=== PATIENT | female | born 1955 | race Caucasian/White ===

== ENCOUNTER 2020-10-14 16:38 | Outpatient (CLI) | payer MEDICAID | END 2020-10-14 23:59 | disposition home or self-care (01) | LOC: RT 16:38 | PROVIDERS: ATTEND Family Medicine | DX: J45.20 Mild intermittent asthma, uncomplicated (principal) | CPT/HCPCS: 94010 ==

== ENCOUNTER 2023-03-18 16:41 | Emergency (ER) | payer MEDICAID ==
[~2023-03-18] VITALS: Ht 154.9 cm; Wt 41.6 kg
[2023-03-18 17:57] LABS: BASOPHILS # (AUTO) 0.1 X10'3 (0-0.2); BASOPHILS % (AUTO) 1.1 % (0-1); EOSINOPHILS % (AUTO) 0.1 % (0-6); HEMATOCRIT 41.8 % (35.0-45.0); HEMOGLOBIN 13.5 g/dl (12.0-16.0); LYMPHOCYTES # (AUTO) 1.5 X10'3 (1.1-4.8); LYMPHOCYTES % (AUTO) 18.3 % (21-51); MEAN CORPUSCULAR HGB CONC 32.2 g/dL (33.0-36.5); MEAN CORPUSCULAR VOLUME 89.8 FL (78-98); MEAN PLATELET VOLUME 8.6 FL (7.4-10.4); MONOCYTES # (AUTO) 0.8 X10'3 (0-0.9); MONOCYTES % (AUTO) 9.8 % (2-12); NEUTROPHILS # (AUTO) 5.8 X10'3 (1.8-7.7); NEUTROPHILS % (AUTO) 70.7 % (42-75); PLATELET COUNT 267 X10'3 (140-440); RED BLOOD COUNT 4.65 X10'6 (4.20-5.60); RED CELL DISTRIBUTION WIDTH 15.7 % (11.5-14.5); WHITE BLOOD COUNT 8.2 X10'3 (4.5-11.0)
[2023-03-18 18:12] LABS: ALANINE AMINOTRANSFERASE 16 U/L (12-78); ALBUMIN 3.2 G/DL (3.4-5.0); ALBUMIN/GLOBULIN RATIO 0.6 (1.1-1.5); ALKALINE PHOSPHATASE 102 IU/L (46-116); ANION GAP 7 (8-16); ASPARTATE AMINO TRANSFERASE 34 U/L (10-37); BILIRUBIN,TOTAL 0.5 MG/DL (0.1-1.0); BLOOD UREA NITROGEN 10 MG/DL (7-18); BUN/CREATININE RATIO 14.7 (10.0-20.0); CALCIUM 9.3 MG/DL (8.5-10.1); CHLORIDE 96 MMOL/L (99-107); CREATININE 0.68 MG/DL (0.40-0.90); GLUCOSE 107 MG/DL (70-104); POTASSIUM 3.7 MMOL/L (3.5-5.1); SODIUM 129 MMOL/L (135-145); TOTAL CARBON DIOXIDE 25.7 MMOL/L (24-32); TOTAL PROTEIN 8.2 G/DL (6.4-8.2); eCRCL 53 ML/MIN; eGFR 87 ML/MIN
[2023-03-18 18:19] LABS: LIPASE 23 U/L (16-77); MAGNESIUM 1.6 MG/DL (1.5-2.4); PRO BRAIN NATRIURETIC PEPTIDE 354 PG/ML (0-125)
[2023-03-18] MEDS ORDERED: amox tr/potassium clavulanate 875/125mg TAB PO ONE (20:20)
[2023-03-18] MEDS ORDERED: predniSONE 20 mg tablet PO ONE (20:20)
[2023-03-18] MEDS ORDERED: albuterol 2.5 MG/3 ML nebule NEB ONE (20:20)
[2023-03-18] MEDS ORDERED: PRED20TA PO (20:37)
[2023-03-18] MEDS ORDERED: AMOX-117 PO (20:37)
[2023-03-18] MEDS ORDERED: ALBU8HFA INH (20:37)
[2023-03-18 20:40] VITALS: PULSE 85; RESP 20; O2SAT 91
[2023-03-18 20:51] VITALS: PULSE 86; RESP 18; O2SAT 100
[2023-03-19 05:25] VITALS: TEMP 97.8
[2023-03-19 07:09] VITALS: BP 111/60; PULSE 65; RESP 16; O2SAT 100
== END 2023-03-19 15:20 | disposition home or self-care (01) ==
LOC: ER 16:41
DX: J44.1 Chronic obstructive pulmonary disease with (acute) exacerbation (principal); R05.9 Cough, unspecified
CPT/HCPCS: 36415; 71045; 80053; 83690; 83735; 83880; 84484; 85025; 93005; 94640; 99285; J7512; 94760

== ENCOUNTER 2024-03-07 09:47 | Emergency (ER) | payer MEDICAID ==
[~2024-03-07] VITALS: Ht 154.9 cm; Wt 40.9 kg
[2024-03-07 10:25] LABS: BILIRUBIN,URINE NEGATIVE (Neg); CLARITY,URINE CLOUDY (Clear); COLOR,URINE YELLOW (Yellow); GLUCOSE, URINE NEGATIVE (Neg); KETONES,URINE NEGATIVE (Neg); LEUKOCYTE ESTERASE ,URINE MODERATE (Neg); NITRITES, URINE NEGATIVE (Neg); OCCULT BLOOD,URINE MODERATE (Neg); PROTEIN,URINE 30 mg/dl (Neg); UROBILINOGEN,URINE 0.2 E.U/dL (0.2-1.0)
[2024-03-07 10:39] LABS: UA COLLECTION TYPE CLN CATCH MIDSTREAM
[2024-03-07 10:43] LABS: RBC,URINE 0-2 /HPF (0-2); WBC,URINE 50-100 /HPF (0-4)
[2024-03-07 10:44] LABS: BACTERIA,URINE FEW /HPF (Neg); MUCUS STRANDS NONE SEEN /LPF (Neg); SQUAMOUS EPITHELIAL CELL,UR FEW /LPF (FEW)
[2024-03-07 13:52] VITALS: TEMP 98
[2024-03-07] MEDS ORDERED: FLUC150T46 PO (14:22)
[2024-03-07] MEDS ORDERED: NITR100C6 PO (14:22)
[2024-03-07 15:05] VITALS: BP 186/98; PULSE 78; RESP 18; O2SAT 95
== END 2024-03-07 14:55 | disposition home or self-care (01) ==
LOC: ER 09:48
DX: N76.0 Acute vaginitis (principal); N39.0 Urinary tract infection, site not specified; J44.9 Chronic obstructive pulmonary disease, unspecified; Z98.51 Tubal ligation status; Z98.890 Other specified postprocedural states
CPT/HCPCS: 81001; 87088; 99283

== ENCOUNTER 2025-01-19 10:27 | Emergency (ER) | payer MEDICARE, MEDICAID ==
[~2025-01-19] VITALS: Ht 157.5 cm; Wt 47.6 kg
[~2025-01-19 10:27] MED LIST: NITR100C6 PO
--- NOTE | 2025-01-19 11:02 | Physician Documentation ---
History of Present Illness General Chief Complaint: Wound Stated Complaint: INFECTION Time Seen by MD: 11:01 Primary Medical Doctor: none Source: patient Mode of Arrival: EMS, Stretcher History of Present Illness Initial Comments A 69 years old with PMH of celiac disease, asthma and UTI came to the ER for the unhealed right king wound after received IV ABx at [facility] 5 weeks ago. Her hearing ability were severely diminished bilaterally made her a poor historian. She stated that she got the IV ABx from [facility] 5 weeks ago for her right king wound. She has been using the Ibuprofen and Tylenol a lot for her associated pain. She bandaged herself for two days in a row and realized that she needs the stronger ABx to make it away. She denied for Diabetes and other immunodeficiency and taking immunosupprasants, except she subjectively mentioned that she has a weak immune system cause she has a celiac disease. Medication Reconciliation Allergies: Coded Allergies: latex (Verified Allergy, Unknown, 01/19/25) Scheduled Cephalexin*Monohydrate* (Keflex*), 2 CAP PO BID Lactobacillus Rhamnosus (Culturelle), 1 CAP PO DAILY Sulfamethoxazole/Trimethoprim (Bactrim Ds Tablet), 1 TAB PO Q12H Discontinued Medications Nitrofurantoin Monohyd/M-Cryst (Macrobid 100 mg Capsule), 1 CAP PO Q12H Past Medical History Past Medical History: Asthma, COPD Other Past Medical History: celiac disease, asthma and UTI Past Surgical History: , tubal ligation Smoking: Cigarettes Alcohol Use: None Drug Use: none Lives with: Family Lives In: Home Review of Systems All Other Systems at this time: Reviewed and Negative Physical Exam Physical Exam Vital Signs: Temperature: 98.2, Source: Oral, Heart Rate: 79, Respiratory Rate: 22, BP: 166/85, Pulse Oximetry: 96, Weight: 47.600 Oxygen Flow Rate: 0 Physical Exam General: Well alert, well oriented, not confused, not agitated, not in acute distress, well cooperated during the physical. HEENT: Conjunctive are pink, sclerae clear, no icterus, pupil is equal in both sides, reactive to light, no ear discharge, no pharyngeal erythema or an edema, mouth and lips are moist. Neck: Supple, no JVD, no lymphadenopathy and thyromegaly. Lungs:Equal air entry on both lungs, no additional sounds Heart: S1-S2 regular sinus rhythm and, regular rate, no gallops, no rubs, no murmurs Abdomen: No visible peristalsis, Bowel sounds present on auscultation, soft, nontender, no guarding, no rigidity Extremities: A oval shaped 3 x 4 cm healing wound over the right king with signs of inflammation with the good blood supply. No obvious deformities, no pitting edema bilaterally, capillary refill intact, able to wiggle toes both sides, peripheral pulsations are intact on both sides SUPPLY CHAIN ASSOCIATE: No focal neurological deficits, no motor and sensory weakness in all 4 extremities, could move all 4 extremities Musculoskeletal: No joint swelling, deformities, inflammations, and no scoliosis and back tenderness Skin: No active skin lesions and rashes Progress Results/Orders Results/Orders Vital Signs 01/19/25 01/19/25 01/19/25 01/19/25 10:35 12:08 13:39 14:10 Temp 98.2 98.2 Pulse 79 82 75 71 Resp 22 20 16 20 B/P (MAP) 166/85 159/78 (105) 153/91 (111) 163/88 (113) Pulse Ox 96 93 95 95 O2 Flow Rate 0 0 0 0 Laboratory Tests Test 01/19/25 10:50 01/19/25 11:17 01/19/25 11:28 01/19/25 13:25 Procalcitonin 0.98 H White Blood Count 12.5 H Red Blood Count 4.56 Hemoglobin 13.2 Hematocrit 40.4 Mean Corpuscular Volume 88.5 Mean Corpuscular Hemoglobin 29.0 Mean Corpuscular Hemoglobin Concent 32.7 L Red Cell Distribution Width 14.4 Platelet Count 185 Mean Platelet Volume 9.1 Neutrophils (%) (Auto) 83.2 H Lymphocytes (%) (Auto) 7.3 L Monocytes (%) (Auto) 9.0 Eosinophils (%) (Auto) 0.2 Basophils (%) (Auto) 0.3 Neutrophils # (Auto) 10.4 H Lymphocytes # (Auto) 0.9 L Monocytes # (Auto) 1.1 H Eosinophils # (Auto) 0.0 Basophils # (Auto) 0.0 CBC Comment Erythrocyte Sedimentation Rate 20 Sodium Level 130 L Potassium Level 3.6 Chloride Level 96 L Carbon Dioxide Level 26.5 Anion Gap 8 Blood Urea Nitrogen 18 Creatinine 0.77 Estimated GFR/1.73 m2 75 BUN/Creatinine Ratio 23.4 H Glucose Level 107 H Calcium Level 7.7 L Total Bilirubin 0.4 Aspartate Amino Transf (AST/SGOT) 41 H Alanine Aminotransferase (ALT/SGPT) 14 Alkaline Phosphatase 69 Total Protein 7.1 Albumin 2.9 L Globulin 4.2 Albumin/Globulin Ratio 0.7 L Chemistry Comments Urine Specimen Description Cln catch midstream Urine Color Yellow Urine Clarity Clear Urine pH 6.5 Urine Specific [place] 1.015 Urine Protein Negative Urine Glucose (UA) Negative Urine Ketones Negative Urine Occult Blood Trace-intact Urine Nitrite Negative Urine Bilirubin Negative Urine Urobilinogen 2.0 H Urine Leukocyte Esterase Moderate H Urine RBC 3-10 Urine WBC 10-20 H Urine Squamous Epithelial Cells Few Urine Bacteria 1+ Urine Culture Indicated Indicated Volume Urine Centrifuged 10 ml Urine Comment Microbiology Date/Time Source Procedure Growth Status 01/19/25 13:53 Urine Clean Catch Midstream Urine Culture - Preliminary Culture received. Resulted EKG/XRAY/CT/US/VASC/MRI Bone/Soft Tissue X-Ray (Spine) : Additional Comment Patient: MAX ANAYA Medical Record: [id number] [facility] : 1955, Age: 69 Sex: Female Location: ER Patient Status: [facility] ER Service Date/Time: 01/19/25/ 1235 Ordering Physician: MADDISON HYATT Exam: TIB/FIB 2 VWS CLINICAL INDICATION: unhealed wound over the right king to rule out possible Osteomyeleitis TECHNIQUE: DI TIB/FIB 2 VWS right Comparison: None FINDINGS/IMPRESSION: : There is no evidence of acute fracture or dislocation. Soft tissues are unremarkable. Electronically Signed by:DARWIN JESUS MD Date & Time: 01/19/25 1247 Dictated by: DARWIN JESUS MD Dictation date and time: 01/19/25 1228 Primary Care Provider: NO PRIMARY CARE PROVIDER cc: MADDISON HYATT, EDITH ~ Medical Decision Making Additional information obtaine: N/A Findings A 69 years old with PMH of celiac disease, asthma and UTI came to the ER for the unhealed right king wound after received IV ABx at [facility] 5 weeks ago. # Chronic unhealed wound over right king -basic labs CBC and CMP with Procalcitonin and ESR were ordered -Oral Abx -elevated Procal and WBC with UTI evidence in UA -discharge the pt with oral Bactrim DS and keflex for both UTI and SKin infections x 7 days, to follow up with PCP to recheck the CBC CMP and Procal Differential Diagnosis Cellulitis right leg UTI Departure Time of Disposition: 14:05 Disposition: 01 HOME / SELF CARE / HOMELESS Impression: Primary Impression: Cellulitis Qualified Codes: L03.115 - Cellulitis of right lower limb Additional Impression: UTI (urinary tract infection) Qualified Codes: N30.00 - Acute cystitis without hematuria Discharge Instructions: Acute Urinary Retention, Female, Cellulitis, Adult Additional Instructions: Take your medication as prescribed. Follow up with your healthcare provider as soon as possible. Return for worsening of your symptoms. Referrals: NO PRIMARY CARE PROVIDER (PCP) Prescriptions Lactobacillus Rhamnosus (Culturelle) 10 Billion Cell Capsule 1 CAP PO DAILY for 14 Days, #14 CAP 0 Refills Prov: MADDISON HYTAT, RES 01/19/25 Cephalexin*Monohydrate* (Keflex*) 250 Mg Capsule 2 CAP PO BID for 7 Days, #28 CAP Prov: MADDISON HYATT, RES 01/19/25 Sulfamethoxazole/Trimethoprim (Bactrim Ds Tablet) 800 Mg-160 Mg Tablet 1 TAB PO Q12H for 7 Days, #14 TAB Prov: MADDISON HYATT, RES 01/19/25 Additional Comment Seen with PA/EPIDEMIOLOGY INVESTIGATOR The patient was seen with the manager medical. I have reviewed the resident's note and assessment and plan as written and I agree with the note in the assessment and plan. I have supervised all aspects of the residents care. I have examined the patient. The patient has what appears to be a fairly chronic cellulitis to the right leg she also had an elevated procalcitonin which I think is more likely due to a urinary tract infection the patient will be treated with Bactrim and Keflex. Prior hospitalizations has been reviewed. The patient's pulse oximetry was interpreted as adequate and normal and her hall monitor was interpreted as a sinus rhythm. Signature Scribe Signature: None Attestation: Resident attestation: Patient was seen, examined and discussed with attending ER , Dr. Jose HYATT MD Internal Medicine Resident, PGY3 [facility],BZOENA Rucker MD Jan 19, 2025 11:02 MADDISON HYATT, RES Jan 19, 2025 11:14
[2025-01-19 11:45] LABS: MEAN PLATELET VOLUME 9.1 FL (7.4-10.4); RED CELL DISTRIBUTION WIDTH 14.4 % (11.5-14.5)
[2025-01-19 11:54] LABS: CREATININE 0.77 MG/DL (0.40-0.90); TOTAL CARBON DIOXIDE 26.5 MMOL/L (24-32); eCRCL 53 ML/MIN; eGFR 75 ML/MIN
--- NOTE | 2025-01-19 12:49 | RADIOLOGY REPORT ---
CLINICAL INDICATION: unhealed wound over the right king to rule out possible Osteomyeleitis TECHNIQUE: DI TIB/FIB 2 VWS right Comparison: None FINDINGS/IMPRESSION: : There is no evidence of acute fracture or dislocation. Soft tissues are unremarkable.
[2025-01-19 13:39] VITALS: TEMP 98.2
[2025-01-19 13:39] LABS: LEUKOCYTE ESTERASE ,URINE MODERATE (Neg); NITRITES, URINE NEGATIVE (Neg); OCCULT BLOOD,URINE TRACE-INTACT (Neg)
[2025-01-19 13:40] LABS: UA COLLECTION TYPE CLN CATCH MIDSTREAM
[2025-01-19 13:53] LABS: SQUAMOUS EPITHELIAL CELL,UR FEW /LPF (FEW)
[2025-01-19] MEDS ORDERED: SULF1TAB49 PO ×2 (14:09→14:17)
[2025-01-19] MEDS ORDERED: CEPH250T PO ×2 (14:09→14:17)
[2025-01-19] MEDS ORDERED: LACT1CAP26 PO ×2 (14:09→14:17)
[2025-01-19 14:10] VITALS: BP 163/88; PULSE 71; RESP 20; O2SAT 95
== END 2025-01-19 14:25 | disposition home or self-care (01) ==
LOC: ER 10:28
DX: L03.115 Cellulitis of right lower limb (principal); N39.0 Urinary tract infection, site not specified; J44.9 Chronic obstructive pulmonary disease, unspecified; F17.210 Nicotine dependence, cigarettes, uncomplicated; Z91.040 Latex allergy status; Z87.440 Personal history of urinary (tract) infections; Z79.899 Other long term (current) drug therapy; Z98.890 Other specified postprocedural states
CPT/HCPCS: 36415; 73590; 80053; 81001; 84145; 85025; 85651; 87088; 99284; J0690